=== PATIENT | male | born 1990 | race Caucasian/White ===

== ENCOUNTER 2018-08-30 13:12 | Emergency (ER) | payer SELFPAY ==
[~2018-08-30] VITALS: Ht 175.3 cm; Wt 113.6 kg
[2018-08-30] MEDS ORDERED: LIDOCAINE 5% TRANSDERMAL PATCH TD ONE (17:00)
[2018-08-30] MEDS ORDERED: IBUPROFEN 800 MG TABLET PO ONE (17:00)
[2018-08-30 19:45] VITALS: BP 135/80
== END 2018-08-30 19:48 | disposition home or self-care (01) ==
LOC: EMS 13:12
DX: M54.2 Cervicalgia (principal); R03.0 Elevated blood-pressure reading, without diagnosis of hypertension; F17.210 Nicotine dependence, cigarettes, uncomplicated; F12.90 Cannabis use, unspecified, uncomplicated; V43.52XA Car driver injured in collision with other type car in traffic accident, initial encounter; Y93.89 Activity, other specified; Y92.89 Other specified places as the place of occurrence of the external cause; Y99.8 Other external cause status
CPT/HCPCS: 72040

== ENCOUNTER 2018-12-20 23:35 | Emergency (ER) | payer SELFPAY ==
[~2018-12-20] VITALS: Ht 175.3 cm; Wt 115.0 kg
[2018-12-21] MEDS ORDERED: KETOROLAC TROMETHAMINE 30 MG/ML VIAL IVP ONE (00:45)
[2018-12-21 01:16] LABS: BASOPHILS % (AUTO) 0.5 % (0.0-2.0); EOSINOPHILS % (AUTO) 2.2 % (1.0-6.0); HEMATOCRIT 45.9 % (41-53); HEMOGLOBIN 14.9 g/dL (13.5-17.5); LYMPHOCYTES # (AUTO) 1.8 K/uL (1.0-4.8); LYMPHOCYTES % (AUTO) 15.1 % (22.0-44.0); MEAN CORPUSCULAR HEMOGLOBIN 25.9 pg (26.0-34.0); MEAN CORPUSCULAR HGB CONC 32.5 G/dL (31.0-37.0); MEAN CORPUSCULAR VOLUME 80 fL (80-100); MONOCYTES # (AUTO) 0.9 K/uL (0.1-1.0); MONOCYTES % (AUTO) 8.1 % (2.0-9.0); NEUTROPHILS # (AUTO) 8.7 K/uL (1.8-7.7); NEUTROPHILS % (AUTO) 74.1 % (40.0-70.0); PLATELET COUNT (AUTO) 258 K/uL (150-450); RED BLOOD CELL COUNT(AUTO) 5.76 MIL/uL (4.50-5.90)
[2018-12-21 01:23] LABS: ANION GAP 8 mmol/L (8-16); CALCIUM, TOTAL 9.5 mg/dL (8.8-10.5); CARBON DIOXIDE 29 mmol/L (22-29); CHLORIDE 100 mmol/L (98-107); CREATININE 0.94 mg/dL (0.60-1.30); GLOMERULAR FILTR. RATE CALC > 60 mL/min (>60); GLUCOSE,RANDOM 110 mg/dL (70-110); POTASSIUM 3.8 mmol/L (3.5-5.1); SODIUM SERUM 137 mmol/L (136-145); UREA NITROGEN, BLOOD 13 mg/dL (7-18)
[2018-12-21 01:29] LABS: ALANINE AMINOTRANSFERASE 75 U/L (12-78); ALKALINE PHOSPHATASE 69 U/L (46-116); ASPARTATE AMINOTRANSFERASE 24 U/L (15-37); BILIRUBIN,TOTAL 0.2 mg/dL (0.1-1.0); TOTAL PROTEIN, SERUM 7.9 g/dL (6.4-8.2)
[2018-12-21 03:08] LABS: APPEARANCE,URINE CLEAR (CLEAR); BILIRUBIN,URINE NEGATIVE (NEGATIVE); GLUCOSE, URINE (UA) NEGATIVE (NEGATIVE); KETONES,URINE NEGATIVE (NEGATIVE); LEUKOCYTE ESTERASE ,URINE NEGATIVE (NEGATIVE); NITRATE,URINE NEGATIVE (NEGATIVE); OCCULT BLOOD,URINE NEGATIVE (NEGATIVE); PH,URINE 5.5 (5.0-8.0); PROTEIN,URINE NEGATIVE (NEGATIVE); UROBILINOGEN,URINE 0.2 mg/dL (<=1.0)
[2018-12-21 03:48] VITALS: BP 121/77
== END 2018-12-21 03:53 | disposition home or self-care (01) ==
LOC: EMS 23:39
DX: J06.9 Acute upper respiratory infection, unspecified (principal); L40.1 Generalized pustular psoriasis; F12.90 Cannabis use, unspecified, uncomplicated
CPT/HCPCS: 36415; 70210; 71045; 80053; 81003; 85025; 87430; 96374; 99284; J1885

== ENCOUNTER 2019-04-15 02:39 | Emergency (ER) | payer SELFPAY ==
[~2019-04-15] VITALS: Ht 175.3 cm; Wt 109.1 kg
[2019-04-15 06:21] VITALS: BP 130/79
== END 2019-04-15 06:23 | disposition home or self-care (01) ==
LOC: EMS 02:39
DX: R51 Headache (principal); F12.90 Cannabis use, unspecified, uncomplicated; F17.210 Nicotine dependence, cigarettes, uncomplicated
CPT/HCPCS: 99406

== ENCOUNTER 2019-06-06 11:52 | Emergency (ER) | payer MEDICAID ==
[~2019-06-06] VITALS: Ht 175.3 cm; Wt 109.1 kg
[2019-06-06 12:16] VITALS: BP 142/94
[2019-06-06] MEDS ORDERED: LISI-662 PO (12:21)
[2019-06-06] MEDS ORDERED: FLUORESCEIN SODIUM 1 MG STRIP OU ONE (13:30)
[2019-06-06] MEDS ORDERED: PROPARACAINE HCL 0.5% 15 ML OPHTHALMIC SOLUTION OU ONE (13:30)
[2019-06-06] MEDS ORDERED: NEOMYCIN/BACITRACIN/POLYMYXIN/HYDROCORT 3.5 GM OPHTHALMIC OINTMENT OS ONE (13:30)
== END 2019-06-06 14:57 | disposition home or self-care (01) ==
LOC: EMS 11:52
DX: H10.212 Acute toxic conjunctivitis, left eye (principal); F17.210 Nicotine dependence, cigarettes, uncomplicated
CPT/HCPCS: 99406